=== PATIENT | male | born 1970 | race Caucasian/White ===

== ENCOUNTER 2017-03-24 21:42 | Emergency (ER) | payer OTHER ==
[~2017-03-24] VITALS: Ht 172.7 cm; Wt 71.0 kg
[~2017-03-24 21:42] MED LIST: LITH450 PO; LOVA10TA PO; NOVOLOGSS SQ; ST J81CH PO; XANA2TAB PO
[2017-03-24 21:43] VITALS: BP 121/83; PULSE 77; RESP 16; TEMP 98.5; O2SAT 99
--- NOTE | 2017-03-24 22:19 | PD ---
HPI Chief Complaint: Skin Problem Time Seen by Provider: 22:18 Travel History International Travel<30 days: No Contact w/Intl Traveler<30days: No Traveled to known affect area: No History of Present Illness HPI 46-year-old male presents to emergency Department with history of insect bite to the right hand, currently being treated by his primary care physician with doxycycline 100 mg twice a day. Patient states is worse over the last 3 days, and his physician told him to come here to have it evaluated. Patient is a diabetic, so he is concerned about this infection. Patient denies fever, chills , or other symptoms. 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 He has no history of MRSA in the past. Patient states he is not truly allergic to shellfish as noted. He has had IV contrast for CT and without reaction. PFSH Past Medical History Anxiety: Yes Heart Rhythm Problems: No Cardiac Catheterization: No Cardiovascular Problems: No High Cholesterol: No Congestive Heart Failure: No Diabetes: Yes Diminished Hearing: No Immunizations Current: Yes Thyroid Disease: Yes (HYPOTHYROIDISM R/T LITHIUM ) Past Surgical History Coronary Artery Bypass Graft: No Endocrine Surgery: Yes (INSULIN PUMP) Tonsillectomy: Yes Other Surgery: Yes (C6-C7 FUSION) Social History Alcohol Use: Yes (OCCASIONAL) Tobacco Use: Yes (VAPE/E-CIG) Substance Use: No Allergies-Medications (Allergen,Severity, Reaction): Coded Allergies: No Known Allergies (Unverified , 03/24/17) Reported Meds & Prescriptions Reported Meds & Active Scripts Active Bactroban Topical (Mupirocin) 22 Gm Cream 1 Applic TOPICAL BID Bactrim DS (Sulfamethoxazole-Trimethoprim) 800-160 Mg Tab 1 Tab PO BID Reported Aspirin 81 mg chewable (Aspirin) 81 Mg Chw 81 Mg PO DAILY Mevacor (Lovastatin) 10 Mg Tab 10 Mg PO DAILY [place] Carbonate ER ([place] Carbonate) 450 Mg Tab 450 Mg PO DAILY Novolog Insulin Supplemental Scale (Insulin Aspart) 100 /Ml Inj 2-12 Units SQ TIDACHS Max dose at bedtime:( )units; sugars less than 70, (0)units; sugars 150-199, (2)units; sugars 200-249, (4)units; sugars 250-299,(7)units; sugars 300-349, (10)units; sugars greater than 349, (12)units Xanax XR (Alprazolam) 2 Mg Tab 2 Mg PO DAILY Review of Systems Except as stated in HPI: all other systems reviewed are Neg General / Constitutional: No: Fever Eyes: No: Visual changes HENT: No: Headaches Cardiovascular: No: Chest Pain or Discomfort Respiratory: No: Shortness of Breath Gastrointestinal: No: Abdominal Pain Genitourinary: No: Dysuria Musculoskeletal: No: Pain Skin: Positive Lesions (history of present illness.), No Rash Neurologic: No: Weakness Psychiatric: No: Depression Endocrine: No: Polydipsia Hematologic/Lymphatic: No: Easy Bruising Physical Exam Narrative GENERAL: Patient appears somewhat anxious but otherwise in no acute distress SKIN: Warm and dry. Normal color. Normal turgor. Patient has a 3 mm diameter erythematous lesion to the first webspace of the right hand consistent with either insect bite local reaction. There is no sign of significant induration, abscess, or streaking. HEAD: Atraumatic. Normocephalic. EYES: Pupils equal and round. No scleral icterus. No injection or drainage. ENT: No nasal bleeding or discharge. Mucous membranes pink and moist. NECK: Trachea midline. No JVD. CARDIOVASCULAR: Regular rate and rhythm. RESPIRATORY: No accessory muscle use. Clear to auscultation. Breath sounds equal bilaterally. GASTROINTESTINAL: Abdomen soft, non-tender, nondistended. Hepatic and splenic margins not palpable. MUSCULOSKELETAL: Extremities without clubbing, cyanosis, or edema. No obvious deformities. NEUROLOGICAL: Awake and alert. No obvious cranial nerve deficits. Motor grossly within normal limits. Five out of 5 muscle strength in the arms and legs. Normal speech. PSYCHIATRIC: Appropriate mood and affect; insight and judgment normal. Data Data Last Documented VS Vital Signs Date Time Temp Pulse Resp B/P (MAP) Pulse Ox O2 Delivery O2 Flow Rate FiO2 03/24/17 21:43 98.5 77 16 121/83 (96) 99 Room Air Orders Orders Sulfamet-Trimeth Ds 800-160 Mg (Bactrim (03/24/17 22:30) [facility] Medical Decision Making Medical Screen Exam Complete: Yes Emergency Medical Condition: Yes Differential Diagnosis Insect bite. Local allergic reaction. Cellulitis. Possible MRSA. Anxiety. Narrative Course Patient is medically stable at time of exam. Patient is to DC doxycycline and start Bactrim DS twice a day 7 days. Patient is given his first dose of Bactrim by mouth now. Patient also to use Bactroban ointment to the area after washing with soap and water twice daily. Keep the area covered for the next week and follow up with his primary care physician as needed. Patient can return to emergency Department with worsening symptoms as needed. Further medical workup today is not felt warranted. Diagnosis Primary Impression: Insect bite of right hand with local reaction Qualified Codes: S60.561A - Insect bite (nonvenomous) of right hand, initial encounter; W57.XXXA - Bitten or stung by nonvenomous insect and other nonvenomous arthropods, initial encounter Referrals: Primary Care Physician Patient Instructions: General Instructions, Insect Bite or Sting (ED) Additional Instructions: Patient is to DC doxycycline and start Bactrim DS twice a day 7 days. Patient is given his first dose of Bactrim by mouth now. Patient also to use Bactroban ointment to the area after washing with soap and water twice daily. Keep the area covered for the next week and follow up with his primary care physician as needed. Patient can return to emergency Department with worsening symptoms as needed. Further medical workup today is not felt warranted. Med/Other Pt SpecificInfo: Prescription(s) given Scripts Mupirocin Topical (Bactroban Topical) 22 Gm Cream 1 APPLIC TOPICAL BID for Mgmt Bacterial Infection, #1 TUBE 0 Refills Prov: Carson Carcamo MD 03/24/17 Sulfamethoxazole-Trimethoprim (Bactrim DS) 800-160 Mg Tab 1 TAB PO BID for Infection, #14 TAB 0 Refills Prov: Carson Carcamo MD 03/24/17 Disposition: 01 DISCHARGE HOME Condition: Stable Manoj Garcia Mar 24, 2017 22:19
[2017-03-24] MEDS ORDERED: SULFAMETHOXAZOLE-TRIMETHOPRIM DS 800-160 MG TAB PO ONE (22:30)
[2017-03-24] MEDS ORDERED: MUPI2%T TOPICAL (22:34)
[2017-03-24] MEDS ORDERED: BACT800T5 PO (22:34)
[2017-03-24] MEDS ORDERED: NOVOLOGSS (22:46)
[2017-03-24] MEDS ORDERED: BUSP30TA PO (22:46)
[2017-03-24] MEDS ORDERED: XANA1TAB PO (22:46)
== END 2017-03-24 23:01 | disposition home or self-care (01) ==
LOC: NEPE 21:42
DX: S60.561A Insect bite (nonvenomous) of right hand, initial encounter (principal); W57.XXXA Bitten or stung by nonvenomous insect and other nonvenomous arthropods, initial encounter
CPT/HCPCS: 99284

== ENCOUNTER 2017-07-27 07:15 | Emergency (ER) | payer OTHER ==
[~2017-07-27] VITALS: Ht 172.7 cm; Wt 70.0 kg
[~2017-07-27 07:15] MED LIST changes: +BACT800T5 PO; +BUSP30TA PO; -LITH450 PO; -LOVA10TA PO; +MUPI2%T TOPICAL; +NOVOLOGSS; -NOVOLOGSS SQ; -ST J81CH PO; +XANA1TAB PO; -XANA2TAB PO
[2017-07-27 07:18] VITALS: BP 115/68; PULSE 81; RESP 16; TEMP 97.3; O2SAT 99
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
[2017-07-27] MEDS ORDERED: IBUPROFEN 600 MG TAB PO ONE (07:30)
[2017-07-27] MEDS ORDERED: IBUP1TAB7 PO (08:02)
[2017-07-27] MEDS ORDERED: CYCL10TA PO (08:02)
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
== END 2017-07-27 08:11 | disposition home or self-care (01) ==
LOC: NEPD 07:15
DX: S40.012A Contusion of left shoulder, initial encounter (principal); V49.40XA Driver injured in collision with unspecified motor vehicles in traffic accident, initial encounter; Y92.488 Other paved roadways as the place of occurrence of the external cause
CPT/HCPCS: 73030; 99283

== ENCOUNTER 2017-08-09 14:36 | Emergency (ER) | payer OTHER ==
[~2017-08-09] VITALS: Ht 172.7 cm; Wt 72.0 kg
[~2017-08-09 14:36] MED LIST changes: -BACT800T5 PO; +CYCL10TA PO; +IBUP1TAB7 PO; -MUPI2%T TOPICAL
[2017-08-09 14:49] VITALS: BP 118/63; PULSE 82; RESP 16; TEMP 97.4; O2SAT 98
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
[2017-08-09 19:47] VITALS: BP 131/81; PULSE 62; RESP 16; TEMP 97.9; O2SAT 99
== END 2017-08-09 20:27 | disposition home or self-care (01) ==
LOC: NEPD 14:36
DX: M54.12 Radiculopathy, cervical region (principal); E11.9 Type 2 diabetes mellitus without complications; Z79.4 Long term (current) use of insulin
CPT/HCPCS: 99281